=== PATIENT | female | born 1970 | race Caucasian/White ===

== ENCOUNTER → 2019-05-03 | Day surgery (SDC) | payer OTHER ==
[~2019-05-03] MED LIST: ALPRAZOLAM1 MG PO; FENTANYL CITRATE/PF 100MCG/2 ML INJ ONE; HYOSCYAMINE 0.125 MG TAB ONE; LEVSIN0.125 MG PO; LIDOCAINE HCL 2% LOCAL INJ 5 ML SDV VIAL INJ ONE; METOCLOPRAMIDE HCL 10 MG/2ML VIAL ONE; MIDAZOLAM HCL 2 MG/2 ML VIAL ONE; PANTOPRAZOLE 40 MG 10ML VIAL ONE; PHENERGAN25 MG/1 ML PO; PROPOFOL IV EMULSION 10 MG/ML 20 ML VIAL ONE; TRAZODONE HCL50 MG PO; ZOFRAN8 MG PO
--- OUTSIDE RECORDS SUMMARY | 2019-05-03 08:42 | XMS REPORT ---
Author Author [facility] Address Unknown Phone Unavailable Care Team Providers Care Airset Caster Name Role Phone NONE PP Unavailable Problems This patient has no known problems. Allergies, Adverse Reactions, Alerts This patient has no known allergies or adverse reactions. Medications This patient has no known medications. Encounters Start Date/Time End Date/Time Encounter Type Admission Type Attending Clinicians Care Facility Care Department Encounter ID 2017-03-15 12:29:00 2017-03-15 12:29:00 Outpatient [id number] [id number] Results Test Description Test Time Test Comments Text Results Atomic Results Result Comments US TRANSVAGINAL 2017-03-15 13:52:11 EXAM: Pelvic Sonogram.TECHNIQUE: Serial multiplanar del castillo scale endovaginal imagingwith/without Doppler interrogation including spectral Doppler waveformanalysis and color flow imaging.HISTORY: 47-year-old female A1 with previoushysterectomy/bilateral salpingo- oophorectomy with bleeding afterintercourseCOMPARISON: NoneFINDINGS:* Uterus/endometrium: Hysterectomy* Adnexae: Status with bilateral salpingo- oophorectomy. No fluidcollections and/or adnexal masses.* Other: No extrauterine mass or free fluid is seen.IMPRESSION: 1. Status post hysterectomy with bilateral salpingo-oophorectomy. 2. No abnormal fluid collections and/or masses identified within thepelvis/bilateral adnexa.
[2019-05-03 14:00] VITALS: BP 101/75
--- NOTE | 2019-05-03 16:07 | Operative Report ---
DATE OF PROCEDURE: 05/03/2019 SURGEON: Fortunato Richards MD PROCEDURE: An EGD with biopsies and colonoscopy with polypectomy. INDICATIONS FOR EGD: History of melena, bloating. INDICATIONS FOR COLONOSCOPY: History of bright red blood per rectum, colon polyp. MEDICATIONS: The patient was done under MAC, please see anesthesiologist's note. PROCEDURE IN DETAIL: With the patient in left lateral decubitus position, a flexible fiberoptic Olympus gastroscope was introduced into the esophagus under direct visualization without any difficulty. There was a minute island of velvety red mucosa in the distal esophagus. Some biopsies were obtained to rule out Ferguson. The scope was then advanced with ease into the stomach. Mucosa overlying the antrum and the body revealed some patchy erythema and [id number] edema, and biopsies were obtained and sent to stain for H pylori. The pylorus was of normal contour and shape, was intubated with ease and the scope was advanced all the way to the second portion of the duodenum. Biopsies were obtained from the proximal second portion and duodenal bulb to rule out sprue. The scope was then withdrawn back into the stomach and retroflexed mucosa overlying the fundus and cardia appeared to be within normal limits. The scope was then straightened out it was subsequently withdrawn patient tolerated the procedure well. IMPRESSION: 1. Rule out Ferguson esophagus. 2. Gastritis, biopsied. Biopsies sent to stain for H pylori. 3. Rule out sprue. PLAN: Follow up histology. Initiate Protonix 40 mg one p.o. q.a.m. a.c. and Reglan 10 mg one p.o. a.c. t.i.d. and at bedtime. The patient was then turned around and after adequate lubrication of the anal canal, a flexible fiberoptic Olympus colonoscope was inserted into the rectum with ease and advanced all the way to the cecum. It was then withdrawn slowly. Mucosa overlying the cecum and ascending colon transverse and descending grossly appeared to be within normal limits. A minute polyp was hot biopsied from the sigmoid colon. Three minute polyps were hot biopsied from the rectum. The scope was then retroflexed into the distal rectum and small internal hemorrhoids were noted none of which was actively bleeding. The scope was then straightened out and was subsequently withdrawn. The patient tolerated the procedure well. IMPRESSION: 1. Sigmoid colon polyp minute, hot biopsied. 2. Rectal polyps x3, hot biopsied. The scope was then retroflexed into the distal rectum. Small internal hemorrhoids were noted, none of which was actively bleeding. The scope was then straightened out and was subsequently withdrawn. The patient tolerated the procedure well. IMPRESSION: 1. Sigmoid colon polyp, hot biopsied. 2. Rectal polyps x3, hot biopsied. 3. Internal hemorrhoids none actively bleeding. PLAN: Followup histology. Initiate high-fiber low-fat diet. Initiate high-fiber supplement. VSL#3 one p.o. b.i.d. The patient might benefit from a followup colonoscopy in 5 years. Fortunato Richards MD [facility] /[id number]
== END | disposition home or self-care (01) ==
LOC: OR 08:25
PROVIDERS: ATTEND Internal Medicine Gastroenterology
DX: K59.00 Constipation, unspecified (principal); K63.5 Polyp of colon; K62.1 Rectal polyp; K29.50 Unspecified chronic gastritis without bleeding; K22.70 Barrett's esophagus without dysplasia; K21.0 Gastro-esophageal reflux disease with esophagitis; K64.8 Other hemorrhoids; M32.9 Systemic lupus erythematosus, unspecified; E16.2 Hypoglycemia, unspecified; F41.9 Anxiety disorder, unspecified; F32.9 Major depressive disorder, single episode, unspecified; F17.290 Nicotine dependence, other tobacco product, uncomplicated
CPT/HCPCS: 36415; 43239; 45378; 45384; 82948; J2001; J2250; J2765; J3010